=== PATIENT | male | born 1965 | race African-American/Black ===

== ENCOUNTER → 2019-10-01 | Outpatient (CLI) | payer BC ==
[~2019-10-01] MED LIST: ATOR10TA60 PO; DAPA10TA PO; GLIM1TAB3 PO; IOHEXOL 180 MG/ML 10 ML VIAL. ONE; LISD20CA4 PO; LOSA-73 PO; MELO15TA23 PO; NAPR220C4 PO; SITA1TAB11 PO; TIZA4TAB2 PO; methylPREDNISolone ACETATE 40 MG/ML VIAL. ONE; methylPREDNISolone ACETATE 80 MG/ML VIAL. ONE
--- NOTE | 2019-10-01 09:42 | PAIN ---
DATE OF SERVICE: 10/01/2019 INITIAL CONSULTATION FOR PAIN CLINIC CHIEF COMPLAINT: Low back and bilateral lower extremity pain, left greater than right. HISTORY OF PRESENT ILLNESS: This is a 54-year-old male who presents with history of pain in the low back and bilateral lower extremities, left greater than right, but present since about 2016. He was wrestling with his son and had some pain that suddenly occurred and over the years it has been smoldering along the low back and leg. He has tried physical therapy without significant improvement. He is doing some stretching and strengthening on his own, but only with minimal decrease in pain. The patient reports pain in the low back, bilateral lower extremities, posterior gluteus, posterior thigh, lateral thigh, anterior thigh, medial thigh on the left, posterior calves bilaterally to the midcalf to the ankle. The patient reports it is worse with walking, standing and changing positions. It is a constant pain described as sharp, aching with numbness and radiation of pain. No significant weakness, but some fatigability in the left leg with walking most noticeably. The patient reports it is aching. Reports it does not awaken him from sleep very often, but once in a while, maybe once a week at the most. It does not affect his bowel or bladder control, but does affect his ability to walk. He has had some fatigability especially in the left leg, but he is not using any assistive devices to ambulate. The patient has tried tizanidine as well as meloxicam, both of which decreased the pain mildly. Again, physical therapy was not significantly helpful and that was through June of this year. The patient is still doing stretching and strengthening exercises, but without significant decrease in pain. The patient rates his disability rating from 0-10, 10 being the worst, is a 6 with family home responsibilities and sexual behavior, 8 with recreation, 5 with social activity, occupation and self-care and 2 with life support activities. The patient did have MRI scan of the lumbar spine showing some degenerative changes, most noticeably at L4-L5 with associated anterolisthesis of L4 relative to L5 at 0.4 cm, mild annular disk bulging with moderate narrowing in the inferior portion of the left neural foramen with probable left foraminal with L4 nerve root impingement and moderate central canal stenosis. PAST MEDICAL HISTORY: Significant for arthritis, hypertension, type 2 diabetes diagnosed 3 years ago, history of seizures but only as a child. PAST SURGICAL HISTORY: Previous surgeries include right knee scope, left knee scope as well as tonsillectomy. CURRENT MEDICATIONS: Include tizanidine, meloxicam, metformin, atorvastatin, Janumet, Vyvanse, losartan and Aleve. ALLERGIES: The patient has no known drug allergies. FAMILY HISTORY: Significant for cancers. SOCIAL HISTORY: The patient does not smoke, drinks alcohol about one alcoholic drink a week on average. Does not use any illegal, illicit or recreational drugs. Is single, lives locally in [place], works for a [employer] out of [place], [place], and does travel there fairly frequently. REVIEW OF SYSTEMS: The patient's review of systems is positive for those items mentioned in history of present illness. All systems reviewed and otherwise negative. It is complete, full and well documented on the patient's chart. PHYSICAL EXAMINATION: VITAL SIGNS: The patient's blood pressure is 111/73, pulse 99, respirations 16, temperature 98.1 degrees Fahrenheit. Height is 6 feet 1 inch. Weight is 254 pounds. GENERAL: The patient is awake, alert, oriented, appropriate, very pleasant demeanor. HEENT: Head shows normocephalic, atraumatic. Extraocular movements are intact and symmetrical. Oral cavity shows mucous membranes are moist and pink. Dentition is intact. NECK: Shows anterior throat supple without palpable lymphadenopathy noted. Swallow reflex symmetrical. CHEST: Shows normal on inspection. Breath sounds are clear to auscultation bilaterally. HEART: Shows S1 and S2 clear. No murmurs auscultated. ABDOMEN: Soft, nontender, nondistended. No palpable organomegaly is noted. No rebound or guarding demonstrated. BACK: Shows spine grossly in the midline. Normal appearing thoracic kyphosis and lumbar lordotic curvature. Lumbar paraspinous muscle shows symmetrical on inspection, on palpation shows some moderate tenderness diffusely, but only diffusely throughout the upper, middle and lower distribution of paraspinous muscles, but only mildly without significant radiation and without atrophy or hypertrophy. No trigger points. The patient has good rotational motion of the lumbar spine, both laterally greater than 10 degrees right and left as well as extension greater than 10 degrees, forward flexion 45 degrees without significant pain reported. No tenderness over the spinous processes, sacrum or sacroiliac regions. EXTREMITIES: Lower extremities showed deep tendon reflexes at 2+ in the patellar, 1+ tendo-calcaneus, tendons are equal. Motor exam is strong with 5/5 dorsiflexion, extension, quadriceps and hamstring flexion. Peripheral pulses are 1+ to posterior tibia. No peripheral edema is noted. Straight leg raise noted to be negative for radicular symptoms bilaterally. Gaenslen's and Niraj's maneuvers were negative bilaterally as well. The patient is able to stand, stand on his toes without significant difficulty or loss of balance, walks with a normal appearing gait for short distances in the office, not using any assistive devices. SKIN: The patient's skin shows warm and dry, good turgor. No edema. No sores, rashes or bruising throughout. IMPRESSION: 1. This is a 54-year-old male with approximate 3-year history of low back pain increasing in the lower extremities in a radicular fashion, left greater than right. 2. MRI scan of the lumbar spine as noted. 3. Hypertension. 4. Diabetes. 5. Arthritis. PLAN: Options were discussed with the patient including conservative medical management, physical therapy, interventional techniques and he would like to pursue interventional techniques. We discussed a lumbar epidural steroid injection using description as well as anatomical models to describe the procedure. Risks were then discussed including but not limited to bleeding, infection, possibility of epidural hematoma, subsequent neurological compromise, dural puncture, headaches, spinal cord and/or nerve damage, side effects of steroid medication and poor results regarding pain control. The patient understands and wished to proceed. The patient will return to clinic in approximately 2 weeks for followup. He was counseled on his return appointment, activity level and side effects to be aware of. DIAGNOSIS: Lumbar radiculopathy with lumbar degenerative disk disease. PROCEDURE: Lumbar epidural steroid injection translaminar approach at L4-L5 level using C-arm fluoroscopic guidance under sterile prep and drape using local anesthetic. MEDICATIONS INJECTED: A total of 120 mg Depo-Medrol plus 10 mL of preservative-free normal saline and 2 mL of contrast. CONDITION AT DISCHARGE: Stable. The patient tolerated the procedure well, had no complications. LAYLA MONTERROSO MD DR: CLEMENTINE/taisha JOB#: [id number] / [id number] JAKY Jaime
== END ==
LOC: PNCL 07:50
PROVIDERS: ATTEND Anesthesiology
DX: M51.16 Intervertebral disc disorders with radiculopathy, lumbar region (principal); I10 Essential (primary) hypertension; E11.9 Type 2 diabetes mellitus without complications; Z79.84 Long term (current) use of oral hypoglycemic drugs; Z98.890 Other specified postprocedural states; Z72.89 Other problems related to lifestyle
CPT/HCPCS: 62323; J1030; J1040; Q9965